=== PATIENT | male | born 1970 | race African-American/Black ===

== ENCOUNTER 2019-02-02 09:04 | Emergency (ER) | payer BC, MEDICARE ==
[2019-02-02 09:15] VITALS: BP 154/102
--- NOTE | 2019-02-02 10:20 | ER Document Report ---
ED General - General Chief Complaint: Leg Swelling Stated Complaint: LEFT LEG PAIN, SWELLING, FEELS HOT Time Seen by Provider: 02/02/19 10:06 Primary Care Provider: RUFINO JOHANSEN MD [Primary Care Provider] - Follow up as needed TRAVEL OUTSIDE OF THE [place] IN LAST 30 DAYS: No - HPI Notes: Is a 48-year-old male who presents to the emergency department for evaluation of left leg swelling and pain. He states that several days ago he felt a pop in his leg while working on a fence. He had a sudden onset of pain, seem to be primarily in the proximal aspect of the posterior left calf. He states it hurts to bear weight. Over the next several days he noticed that he had an increase in swelling and some redness and heat. His home health nurse recognize this as well. They measured his calf and found to be significantly larger in diameter, so he presented to the emergency department for further evaluation. He has not noticed any significant deficits in his motion, states that it is painful to bear weight. He denies any chest pain or shortness of breath. He states the pain is "tolerable" he just wanted to make sure nothing else more serious was going on. - Related Data Allergies/Adverse Reactions: No Known Allergies Allergy (Unverified 02/02/19 09:14) Home Medications: synthroid, gammaplex, pyridostigmis, carvedilol, amitryptiline, protonix, flonase, prednisone, benadryl Past Medical History - General Information source: Patient - Social History Smoking Status: Never Smoker Chew tobacco use (# tins/day): No Frequency of alcohol use: Occasional Drug Abuse: None Family History: Reviewed & Not Pertinent Patient has suicidal ideation: No Patient has homicidal ideation: No - Past Medical History Cardiac Medical History: Reports: Hx Hypertension Endocrine Medical History: Reports: Hx Hypothyroidism 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, myasthenia gravis Review of Systems - Review of Systems Constitutional: No symptoms reported EENT: No symptoms reported Cardiovascular: No symptoms reported Respiratory: No symptoms reported Gastrointestinal: No symptoms reported Genitourinary: No symptoms reported Musculoskeletal: See HPI Skin: No symptoms reported Neurological/Psychological: No symptoms reported Physical Exam - Vital signs Vitals: Temp Pulse Resp BP Pulse Ox 98.4 F 71 18 154/102 H 98 02/02/19 09:09 02/02/19 09:09 02/02/19 09:09 02/02/19 09:09 02/02/19 09:09 - Notes Notes: Patient is a very pleasant 48-year-old male who appears her stated age in no acute distress. Head is normocephalic and atraumatic, pupils are equal round, reactive to light. Oral mucosa is moist. Heart regular rate and rhythm, lungs are clear to station bilaterally. Abdomen is obese but nontender. He does have IVIG infusing at this time. Examination of the lower extremities reveals significant edema of the left lower calf. Dorsalis pedis pulses are 2+ bilaterally, posterior tibial pulses 1+ bilaterally. Sensation is intact. Positive Homans and Anthony signs. Course - Re-evaluation Re-evalutation: 02/02/19 10:20 Patient presents emergency department for evaluation of left lower extremity swelling and edema. Certainly he is at risk for DVT given his IVIG and decreased mobility. His story sounds like it is most likely a musculoskeletal injury. I am unable to fully assess for this condition given the patient's level of discomfort. We will send him for a Doppler to rule out DVT, continue to monitor. 02/02/19 12:04 Patient is Dopplers preliminarily negative for DVT. There was a collection of fluid. My suspicion is that this is a small amount of blood, secondary to tenderness or muscular injury. Findings were explained to the patient as well as his nurse. I explained to the patient the continued swelling in light of his increased risk of blood clot should prompt another evaluation in about a week. He voiced understanding to this. Certainly if you develop chest pain or shortness of breath of any sort he should immediately return to the ED. - Vital Signs Vital signs: Temp Pulse Resp BP Pulse Ox 98.4 F 71 18 154/102 H 98 02/02/19 09:09 02/02/19 09:09 02/02/19 09:09 02/02/19 09:09 02/02/19 09:09 Discharge - Discharge Clinical Impression: Edema of left lower extremity Condition: Stable Disposition: HOME, SELF-CARE Additional Instructions: It is likely that the swelling you are experiencing in your leg is secondary to a muscular or tendon injury. Keep leg elevated when possible. Follow-up with primary care next week. Given your risk factors for blood clots, if your swelling persists you should have another Doppler to rule this out. If you develop chest pain, difficulty breathing, or any other new or concerning symptoms, return immediately to the emergency department for reevaluation. Referrals: RUFINO JOHANSEN MD [Primary Care Provider] - Follow up as needed
--- NOTE | 2019-02-02 13:12 | XCELERA REPORT ---
[address] [address] Lower Extremity Venous Evaluation Procedure: Color flow and duplex imaging of the veins of the left lower extremity as well as the right Common Femoral vein. Right Sided Venous Evaluation The right common femoral vein is fully compressible. Spontaneous and phasic flow is present in the right common femoral vein. Left Sided Venous Evaluation Body habitus and edema make study challenging. Normal vessel filling wall to wall, compression and augmentation as well as Colour flow down to the infrageniculate veins. Area of pain in calf is more hypoechoic. Interpretation Summary No duplex evidence of DVT or obstruction in the left lower extremity nor in the right Common Femoral vein. Study challenging as noted. Hypoechoic tissue in area of pain, could represent injury, muscle tear. Name: PINO TROY Age: 48 yrs Gender: Male : 1970 Patient Status: Emergency Patient Location: ER Study Date: 02/02/2019 11:29 AM Reason For Study: LLE edema, r/o DVT Ordering Physician: KALE FORD Performed By: Gunnar Rey : KALE FORD > Stephen Li
== END 2019-02-02 12:11 | disposition home or self-care (01) ==
LOC: ER 09:04
DX: R60.9 Edema, unspecified (principal); I10 Essential (primary) hypertension; E03.9 Hypothyroidism, unspecified
CPT/HCPCS: 93971; 99283

== ENCOUNTER 2019-12-10 02:29 | Emergency (ER) | payer MEDICARE ==
[2019-12-10 03:33] LABS: ABSOLUTE MONOCYTES (AUTO) 0.6 10^3/uL (0.1-1.4); ABSOLUTE NEUT (AUTO) 7.6 10^3/uL (1.7-8.2); BASOPHILS % (AUTO) 0.2 % (0-2); HEMATOCRIT 33.7 % (37.9-51.0); HEMOGLOBIN 11.4 g/dL (13.5-17.0); LYMPHOCYTES % (AUTO) 10.6 % (13-45); MEAN CORPUSCULAR HEMOGLOBIN 30.3 pg (27.0-33.4); MEAN CORPUSCULAR HGB CONC 33.9 g/dL (32.0-36.0); MEAN CORPUSCULAR VOLUME 89 fl (80-97); MONOCYTES % (AUTO) 6.4 % (3-13); PLATELET COUNT 221 10^3/uL (150-450); RED BLOOD COUNT 3.77 10^6/uL (4.35-5.55); RED CELL DISTRIBUTION WIDTH 16.4 % (11.5-14.0); SEGMENTED NEUTROPHILS % (AUTO) 82.8 % (42-78); TOTAL CELLS COUNTED % (AUTO) 100 %; WHITE BLOOD COUNT 9.1 10^3/uL (4.0-10.5)
[2019-12-10 03:55] LABS: ALBUMIN 3.7 g/dL (3.5-5.0); ALKALINE PHOSPHATASE 80 U/L (38-126); ANION GAP 6 (5-19); ASPARTATE AMINO TRANSFERASE 37 U/L (17-59); BILIRUBIN,DIRECT 0.2 mg/dL (0.0-0.4); BILIRUBIN,TOTAL 0.9 mg/dL (0.2-1.3); BLOOD UREA NITROGEN 16 mg/dL (7-20); CALCIUM 8.9 mg/dL (8.4-10.2); CARBON DIOXIDE 28 mmol/L (22-30); CHLORIDE 105 mmol/L (98-107); CREATINE KINASE 126 U/L (55-170); GLUCOSE 106 mg/dL (75-110); POTASSIUM 4.3 mmol/L (3.6-5.0); TOTAL PROTEIN 7.9 g/dL (6.3-8.2)
[2019-12-10 04:06] LABS: CREATINE KINASE MB 1.36 ng/mL (<4.55)
--- NOTE | 2019-12-10 04:07 | ER Document Report ---
ED General - General Mode of Arrival: Ambulatory Information source: Patient TRAVEL OUTSIDE OF THE [place] IN LAST 30 DAYS: No <CHRISTINA MARTE - Last Filed: 12/10/19 09:02> <BERTONISHANT - Last Filed: 12/10/19 17:11> - General Chief Complaint: Chest Pain Stated Complaint: CHEST PAIN Time Seen by Provider: 12/10/19 03:27 Primary Care Provider: RUFINO JOHANSEN MD [Primary Care Provider] - Follow up as needed Notes: 49-year-old male patient presents emergency department chief complaint of burning upper abdominal chest pain. Patient reports symptoms started around midnight. Patient has a history of myasthenia gravis, he has chemotherapy infusions every 6 months, he had 1 yesterday. He states he has a burning sensation to the upper abdomen and lower chest. He reports the pain is a 4/5. He denies any radiation of this pain, denies any nausea, vomiting, fever, cough, chills. He reports the pain is worse with a deep breath and states it feels like he cannot get a deep breath. He denies any history of DVT or PE. He is not on any blood thinners. He also reports swelling and slight erythema to his left lower extremity. (CHRISTINA MARTE) - Related Data Allergies/Adverse Reactions: No Known Allergies Allergy (Unverified 02/02/19 09:14) Past Medical History - General Information source: Patient - Social History Smoking Status: Never Smoker Frequency of alcohol use: Social Drug Abuse: None Family History: Reviewed & Not Pertinent - Past Medical History Cardiac Medical History: Reports: Hx Hypertension Endocrine Medical History: Reports: Hx Hypothyroidism Past Surgical History: Reports: Hx Thyroid Surgery <CHRISTINA MARTE - Last Filed: 12/10/19 09:02> Review of Systems - Review of Systems Constitutional: No symptoms reported EENT: No symptoms reported Cardiovascular: Chest pain Respiratory: Hurts to breathe Gastrointestinal: See HPI Genitourinary: See HPI Male Genitourinary: No symptoms reported Musculoskeletal: See HPI Skin: No symptoms reported Hematologic/Lymphatic: No symptoms reported Neurological/Psychological: No symptoms reported <CHRISTINA MARTE - Last Filed: 12/10/19 09:02> Physical Exam <CHRISTINA MARTE - Last Filed: 12/10/19 09:02> - Vital signs Vitals: Temp 98.2 F 12/10/19 02:29 - Notes Notes: PHYSICAL EXAMINATION: GENERAL: Well-appearing, well-nourished and in no acute distress. HEAD: Atraumatic, normocephalic. EYES: Pupils equal round and reactive to light, extraocular movements intact, sclera anicteric, conjunctiva are normal. ENT: Nares patent, oropharynx clear without exudates. Moist mucous membranes. NECK: Normal range of motion, supple without lymphadenopathy LUNGS: Breath sounds clear to auscultation bilaterally and equal. No wheezes rales or rhonchi. HEART: Regular rate and rhythm without murmurs ABDOMEN: Soft, nontender, nondistended abdomen. No guarding, no rebound. No masses appreciated. Musculoskeletal: Swelling noted to left lower extremity, slight erythema noted to medial aspect of left ankle. Strong dorsalis pedis pulse. NEUROLOGICAL: Cranial nerves grossly intact. Normal speech, normal gait. Normal sensory, motor exams PSYCH: Normal mood, normal affect. SKIN: Warm, Dry, normal turgor, no rashes or lesions noted. (CHRISTINA MARTE) Course - Laboratory Result Diagrams: 12/10/19 02:55 12/10/19 02:55 - Diagnostic Test Radiology reviewed: Image reviewed, Reports reviewed - EKG Interpretation by Nc EKG shows normal: Sinus rhythm - EKG reviewed by me shows a sinus rhythm, rate of 74, QTc 426. There is no ST segment elevations or depressions to suggest ischemia, no change from previous EKG on file. <CHRISTINA MARTE - Last Filed: 12/10/19 09:02> - Laboratory Result Diagrams: 12/10/19 02:55 12/10/19 02:55 <NISHANT THOMSON - Last Filed: 12/10/19 17:11> - Re-evaluation Re-evalutation: Patient's work-up today was reassuring. Patient appears well, nontoxic. His vital signs have been within normal limits. He has had 2- troponins. He has had a normal CTA chest, CT abdomen pelvis. He had a slightly elevated d-dimer so these tests were obtained. He does have some swelling to the lower extremity, no history of DVT. I would like to get a venous Doppler ultrasound however patient does not want to wait here for the Doppler tech to be called in in the morning. He will be given outpatient slip. Patient and are both agreeable to this plan. ED return precautions discussed, patient verbalized understanding and agreement with same. (CHRISTINA MARTE) 12/10/19 Patient's venous duplex study without any evidence of acute DVT. Patient is agreeable with discharge plan of care. Patient encouraged to return for any new or worsening symptoms at this time. (NISHANT THOMSON) - Vital Signs Vital signs: Temp Pulse Resp BP Pulse Ox 98.8 F 19 155/80 H 100 12/10/19 08:26 12/10/19 08:26 12/10/19 08:26 12/10/19 08:02 - Laboratory Laboratory results interpreted by pr: 12/10/19 12/10/19 02:55 02:55 RBC 3.77 L Hgb 11.4 L Hct 33.7 L RDW 16.4 H Lymph % (Auto) 10.6 L Seg Neutrophils % 82.8 H D-Dimer 0.63 H Discharge <CHRISTINA MARTE - Last Filed: 12/10/19 09:02> <NISHANT THOMSON - Last Filed: 12/10/19 17:11> - Discharge Clinical Impression: Left leg swelling Chest pain Qualifiers: Chest pain type: unspecified Qualified Code(s): R07.9 - Chest pain, unspecified Condition: Stable Disposition: HOME, SELF-CARE Additional Instructions: Your work-up today was reassuring, your EKG, chest x-ray, CT scans and blood work was normal. Please call to schedule your venous Doppler ultrasound. A copy of your work-up today was given for you to bring to your primary care provider for their review. Please return to the emergency department for any new or worsening symptoms. Forms: Follow-Up Radiology Testing Referrals: RUFINO JOHANSEN MD [Primary Care Provider] - Follow up as needed
--- NOTE | 2019-12-10 04:07 | RADIOLOGY REPORT (SQ) ---
CLINICAL INDICATION: chest pain. TECHNIQUE: A single portable AP view was obtained of the chest at 0328 hours. COMPARISON: None. FINDINGS: The cardiomediastinal silhouette is enlarged with postsurgical change. The lungs are grossly clear. No evidence of effusion or pneumothorax. Mild chronic parenchymal lung change. Presumed ventriculoperitoneal shunt. Left IJ port catheter tip projects over SVC, satisfactory. IMPRESSION: No evidence of active intrathoracic disease.
[2019-12-10 04:10] LABS: TROPONIN I < 0.012 ng/mL
[2019-12-10] MEDS ORDERED: MORPHINE SULFATE 10 MG/ML INJ IV ONE (04:27)
--- NOTE | 2019-12-10 06:05 | RADIOLOGY REPORT (SQ) ---
CLINICAL HISTORY: chest pain/shortness of breath COMPARISON: None. TECHNIQUE: CT CHEST ANGIOGRAPHY WITHOUT THEN WITH IV CONTRAST, CT ABDOMEN PELVIS WITH IV CONTRAST on 12/10/2019 4:26 AM CDT. MIPS reconstructions were generated. This exam was performed according to our departmental dose-optimization program, which includes automated exposure control, adjustment of the mA and/or kV according to patient size and/or use of iterative reconstruction technique. FINDINGS: Vascular: Thoracic aorta is normal in course and caliber without aneurysm or dissection. Pulmonary arteries are adequately opacified without acute or chronic filling defects. Abdominal aorta is normal in course and caliber without aneurysm. Pelvic arteries are patent without aneurysm or occlusion. Chest: The heart is borderline in size. There is no pericardial effusion. Intrathoracic lymph nodes are not enlarged. There is no pleural effusion, pleural thickening or pneumothorax. Central airways are patent. Lungs are clear with no consolidation, mass or interstitial lung disease. Abdomen: The liver is normal in appearance. There is no biliary dilatation. Gallbladder contains layering sludge or tiny gallstones. Gastric banding was performed. The pancreas and spleen are normal in appearance. Adrenal glands are normal. There are tiny bilateral renal cysts. There is no free air. There is no retroperitoneal adenopathy. Pelvis: There is no bowel obstruction. Urinary bladder is unremarkable. There is no free fluid. Appendix is normal. Skeleton: There are no acute osseous findings. No suspicious bony lesions. IMPRESSION: No definite acute process.
--- NOTE | 2019-12-10 07:38 | EKG REPORT ---
SEVERITY:- NORMAL ECG - SINUS RHYTHM : Confirmed by: Luca Edmonds MD 10-Dec-2019 07:37:41
[2019-12-10 08:35] VITALS: BP 155/80
--- NOTE | 2019-12-10 10:30 | RADIOLOGY REPORT (SQ) ---
EXAM DESCRIPTION: VENOUS UNILATERAL LOWER IMAGES COMPLETED DATE/TIME: 12/10/2019 10:17 am REASON FOR STUDY: LLE swelling COMPARISON: None. TECHNIQUE: Dynamic and static gresham scale and color images acquired of the left leg venous system. Se lected spectral images acquired with additional compression and augmentation maneuvers. The contralat eral common femoral vein and saphenofemoral junction were also imaged. Images stored on PACS. LIMITATIONS: None. FINDINGS: COMMON FEMORAL: Normal phasicity, compression and augmentation. No visualized echogenic ma terial on gresham scale. No defects on color images. FEMORAL: Normal compression and augmentation. No visualized echogenic material on gresham scale. No defe cts on color images. POPLITEAL: Normal compression, augmentation. No visualized echogenic material on gresham scale. No defec ts on color images. CALF VESSELS: Normal compression, augmentation. No visualized echogenic material on gresham scale. No de fects on color images. GSV and SSV: Normal compression, augmentation. No visualized echogenic material on gresham scale. No def ects on color images. ANY DEEP VENOUS INSUFFICIENCY: Not evaluated. ANY EVIDENCE OF POPLITEAL CYST: No. OTHER: No other significant finding. CONTRALATERAL COMMON FEMORAL VEIN AND SAPHENOFEMORAL JUNCTION: Not imaged. IMPRESSION: NO EVIDENCE DVT OR SVT IN THE LEFT LEG. TECHNICAL DOCUMENTATION: JOB ID: [id number] [employer]- All Rights Reserved Reading location - IP/workstation name: [email or web address]
== END 2019-12-10 09:37 | disposition home or self-care (01) ==
LOC: ER 02:29
DX: R07.1 Chest pain on breathing (principal); M79.89 Other specified soft tissue disorders; R10.10 Upper abdominal pain, unspecified; G70.00 Myasthenia gravis without (acute) exacerbation; I10 Essential (primary) hypertension
CPT/HCPCS: 93005; 99285; 96374; 36415; 82553; 82550; 85025; 80053; 84484; 85379; 93971; 71045; 71275; 74177; 93010; J2270